=== PATIENT | female | born 1960 | race Caucasian/White ===

== ENCOUNTER 2016-10-26 12:56 | Emergency (ER) | payer MEDICAID ==
[~2016-10-26] VITALS: Ht 157.5 cm; Wt 52.3 kg
[~2016-10-26 12:56] MED LIST: ACET500C5 PO; GLIP5TAB13 PO; IBUP-1542 PO; LANT3I SC; METF500T4 PO; SIMV5TAB50 PO; SITA25TA3 PO; TRAM50TA2 PO
[2016-10-26 13:23] VITALS: Ht 157.5 cm; Wt 52.3 kg
[2016-10-26] MEDS ORDERED: ONDANSETRON 4 MG INJ IV STA (20:18)
[2016-10-26] MEDS ORDERED: SOD CHLORIDE 0.9% 1,000 ML IV STA ×2 (20:18→20:24)
[2016-10-26] MEDS ORDERED: HYDROmorphONE 1 MG/ML SYG IV STA (20:18)
[2016-10-26] MEDS ORDERED: MUPIROCIN 2% 22 GM OINT TOP ONE (20:30)
[2016-10-26] MEDS ORDERED: CEFTRIAXONE 1 GM/50 ML (PMX) 50 ML IVPB ONE (20:30)
[2016-10-26] MEDS ORDERED: IBUPROFEN 600 MG TAB PO ONE (20:30)
[2016-10-26 20:44] LABS: ADD UMIC YES; URINE BILIRUBIN (Dip) NEGATIVE (NEGATIVE); URINE BLOOD (Dip) TRACE (NEGATIVE); URINE COLOR LT. YELLOW (YELLOW); URINE KETONES (Dip) 40 (NEGATIVE); URINE LEUKOCYTE ESTERASE (Dip) NEGATIVE (NEGATIVE); URINE NITRITE (Dip) NEGATIVE (NEGATIVE); URINE TOTAL PROTEIN (Dip) 1+ (NEGATIVE); URINE UROBILINOGEN (Dip) 0.2 E.U./dL (0.1-1.0)
[2016-10-26 20:55] LABS: BASOPHILS % 0.3 % (0.0-2.0); EOSINOPHILS % 0.1 % (0.0-7.0); HEMATOCRIT 45.7 % (37.0-47.0); HEMOGLOBIN 15.5 g/dl (12.0-16.0); LYMPHOCYTES # 0.6 10^3/ul (0.8-2.9); MEAN CORPUSCULAR HEMOGLOBIN 30.6 pg (29.0-33.0); MEAN CORPUSCULAR HGB CONC 33.9 g/dl (32.0-37.0); MEAN CORPUSCULAR VOLUME 90.2 fl (82.0-101.0); MEAN PLATELET VOLUME 12.1 fl (7.4-10.4); MONOCYTE # 0.4 10^3/ul (0.3-0.9); NEUTROPHIL # 9.2 10^3/ul (1.6-7.5); NEUTROPHILS % 89.6 % (39.0-77.0); PLATELET COUNT 125 10^3/UL (140-440); RED BLOOD COUNT 5.07 10^6/ul (4.20-5.40); RED CELL DISTRIBUTION WIDTH 12.5 % (11.5-14.5); UNCORRECTED WBC 10.3 10^3/ul (4.8-10.8); WHITE BLOOD COUNT 10.3 10^3/ul (4.8-10.8)
[2016-10-26 20:57] LABS: SQUAMOUS EPITHELIAL CELL,UR MODERATE; URINE RBCS 0-2 /HPF (0)
[2016-10-26 21:01] LABS: CONDITION 1
[2016-10-26 21:05] LABS: ALBUMIN 4.2 g/dl (3.3-4.9)
[2016-10-26 21:06] LABS: POTASSIUM 4.2 mmol/L (3.5-5.1)
[2016-10-26 21:08] LABS: ALBUMIN/GLOBULIN RATIO 1.16; BILIRUBIN,INDIRECT 0.6 mg/dl (0-1.1); BILIRUBIN,TOTAL 0.6 mg/dl (0.2-1.3); CREATININE 0.47 mg/dl (0.44-1.00); TOTAL PROTEIN 7.8 g/dl (6.1-8.1)
[2016-10-26 21:09] LABS: CALCIUM 9.4 mg/dl (8.4-10.2)
[2016-10-26] MEDS ORDERED: CEPH-443 PO (22:13)
[2016-10-26] MEDS ORDERED: IBUP-1542 PO (22:13)
--- NOTE | 2016-10-26 22:17 | ERD ---
ER Documentation Chief Complaint Date/Time DATE: 10/26/16 TIME: 22:14 Chief Complaint AP WITH N&V & DARK COLORED STOOL X 4 DAYS HPI 55-year-old woman complaining of suprapubic pain and increased urinary frequency 4-5 days, she also complains of bilateral flank pain. She states she suspects she has a urinary tract infection. She denies hematuria but has had a fever today. She denies chest pain, no cough, no shortness of breath, no vomiting or diarrhea, no weight loss, no melena or blood per rectum. Patient denies recent travel or antibiotic use. ROS All systems reviewed and are negative except as per history of present illness. Medications Home Meds Active Scripts Ibuprofen* (Motrin*) 600 Mg Tab, 600 MG PO Q8 for PAIN AND/OR INFLAMMATION, #30 TAB Prov:DEMIAN CHONG MD 10/26/16 Cephalexin* (Keflex*) 500 Mg Capsule, 500 MG PO QID for 5 Days, CAP Prov:DEMIAN CHONG MD 10/26/16 Reported Medications Simvastatin* (Simvastatin*) Unknown Strength Tablet, PO QHS, #30 TAB 04/01/16 Acetaminophen* (Tylophen*) Unknown Strength Capsule, PO QAM Y for PAIN AND OR ELEVATED TEMP, #20 CAP 04/01/16 Sitagliptin* (Januvia*) Unknown Strength Tablet, PO QHS, #30 TAB 04/01/16 Metformin* (Glucophage*) Unknown Strength Tab, PO WITH MEALS TID, #60 TAB 04/01/16 Glipizide* (Glipizide*) Unknown Strength Tablet, PO QHS, TAB 04/01/16 Discontinued Reported Medications Insulin Glargine* (Lantus*) Unknown Strength Soln, SC DAILY, #1 VIAL 04/01/16 Discontinued Scripts Tramadol HCl (Tramadol HCl) 50 Mg Tablet, 50 MG PO Q6 Y for PAIN, #20 TAB Prov:SHANTE BANUELOS NP 04/01/16 Ibuprofen* (Motrin*) 600 Mg Tab, 600 MG PO Q6H Y for PAIN AND OR ELEVATED TEMP, #30 TAB Prov:SHANTE BANUELOS BRAKE REPAIRER 04/01/16 Allergies Allergies: Coded Allergies: No Known Allergy (Unverified , 04/01/16) PMhx/Soc Obesity, hypertension, diabetes mellitus, hypercholesterolemia History of Surgery: Yes (RIGHT INGUINAL TURMOR REMOVAL 11/24, APPENDECTOMY) Anesthesia Reaction: No Hx Neurological Disorder: No Hx Respiratory Disorders: No Hx Cardiac Disorders: Yes (HYPERLIPIDEMIA ) Hx Psychiatric Problems: No Hx Miscellaneous Medical Probl: Yes (DM, LYMPHOMA ) Hx Alcohol Use: No Hx Substance Use: No Hx Tobacco Use: No Smoking Status: Never smoker Physical Exam Vitals Vital Signs Date Time Temp Pulse Resp B/P Pulse Ox O2 Delivery O2 Flow Rate FiO2 10/26/16 23:44 99.0 94 16 108/68 97 Room Air 10/26/16 20:20 Nasal Cannula 2 10/26/16 20:02 100.3 118 20 128/72 98 Room Air 10/26/16 13:23 99.1 77 20 121/56 98 Physical Exam GENERAL: Well-developed, well-nourished, well-hydrated, in no apparent distress , looks nontoxic in appearance, febrile HEENT: Moist mucous membranes, pink conjunctiva, no cervical spine tenderness or step-off deformities, no goiter, no jaundice or icterus, extraocular movements intact without pain. No submandibular induration, and no pharyngeal erythema NEURO: Alert and oriented 3, cranial nerves II through XII intact bilaterally, pupils equal round reactive to light, no focal deficits or facial asymmetry, sensation intact distally Strength 5/5 in upper and lower extremities bilaterally CARDIAC: Tachycardic and regular, no murmurs rubs or gallops LUNGS: Clear bilaterally no wheezing crackles or stridor ABDOMEN: Soft nontender, no guarding, no rigidity, no rebound, no psoas sign no obturator sign. Normoactive bowel sounds SKIN: Warm and dry to touch, no abrasions, contusions, or hematomas, no lacerations, no ecchymosis, no target lesions, and without ulcers EXTREMITIES: No clubbing cyanosis or edema, calves are bilaterally symmetrical, no Homans sign, no popliteal cord sign. Distal pulses equal and bilateral PSYCH: Normal affect without agitation or irritability Result Diagram: 10/26/16201910/26/162019 Results 24 hrs Laboratory Tests Test 10/26/16 20:20 Alanine Aminotransferase (ALT/SGPT) 50IU/L Albumin 4.2g/dl Albumin/Globulin Ratio 1.16 Alkaline Phosphatase 160IU/L Anion Gap 19 Aspartate Amino Transf (AST/SGOT) 33IU/L Basophils # 0.010^3/ul Basophils % 0.3% Blood Morphology Comment Blood Urea Nitrogen 12mg/dl Calcium Level 9.4mg/dl Carbon Dioxide Level 26mmol/L Chloride Level 96mmol/L Creatinine 0.47mg/dl Direct Bilirubin 0.00mg/dl Eosinophils # 0.010^3/ul Eosinophils % 0.1% Globulin 3.60g/dl Glucose Level 330mg/dl Hematocrit 45.7% Hemoglobin 15.5g/dl Indirect Bilirubin 0.6mg/dl Lipase 73U/L Lymphocytes # 0.610^3/ul Lymphocytes % 6.0% Mean Corpuscular Hemoglobin 30.6pg Mean Corpuscular Hemoglobin Concent 33.9g/dl Mean Corpuscular Volume 90.2fl Mean Platelet Volume 12.1fl Monocytes # 0.410^3/ul Monocytes % 4.0% Neutrophils # 9.210^3/ul Neutrophils % 89.6% Nucleated Red Blood Cells # 0.010^3/ul Nucleated Red Blood Cells % 0.0/100WBC Platelet Count 22706^3/UL Potassium Level 4.2mmol/L Red Blood Count 5.0710^6/ul Red Cell Distribution Width 12.5% Sodium Level 137mmol/L Total Bilirubin 0.6mg/dl Total Protein 7.8g/dl Urine Bilirubin NEGATIVE Urine Clarity CLEAR Urine Color LT. YELLOW Urine Glucose 0.5%% Urine Hemoglobin TRACE Urine Ketones 40 Urine Leukocyte Esterase NEGATIVE Urine Microscopic RBC 0-2/HPF Urine Microscopic WBC 2-5/HPF Urine Nitrite NEGATIVE Urine Specific [place] 1.020 Urine Squamous Epithelial Cells MODERATE Urine Total Protein 1+ Urine Urobilinogen 0.2 E.U./dL Urine pH 6.0 White Blood Count 10.310^3/ul Current Medications Medications (Trade) Dose Ordered Sig/Gee Route PRN Reason Start Time Stop Time Status Last Admin Dose Admin Sodium Chloride (NS) 1,000 ml @ 1,000 mls/hr Q1H STAT IV 10/26/16 20:18 10/26/16 20:23 DC Hydromorphone HCl (Dilaudid) 0.5 mg ONCE STAT IV 10/26/16 20:18 10/26/16 20:23 DC Ondansetron HCl (Zofran Inj) 4 mg ONCE STAT IV 10/26/16 20:18 10/26/16 20:22 DC Mupirocin 1 applic 1 applic ONCE ONCE TOP 10/26/16 20:30 10/26/16 20:30 DC Sodium Chloride (NS) 1,000 ml @ 2,000 mls/hr Q30M STAT IV 10/26/16 20:24 10/26/16 20:53 DC 10/26/16 20:39 Ibuprofen 600 mg 600 mg ONCE ONCE PO 10/26/16 20:30 10/26/16 20:31 DC 10/26/16 20:39 Ceftriaxone Sodium (Rocephin) 50 ml @ 100 mls/hr ONCE ONCE IVPB 10/26/16 20:30 10/26/16 20:59 DC 10/26/16 20:40 Procedures/MDM IV line was established patient was placed on calendar control clerk blood bank rhythm strip revealed a sinus tachycardia at 120 bpm with upright P and T waves. Patient was afebrile. I administered 2 L normal saline intravenously, ibuprofen 600 mg p.o., and ceftriaxone 1 g IV CBC was unremarkable, electrolytes revealed mild hyperglycemia 330, liver function tests were normal, troponin was negative. Urine analysis was unremarkable although urine cultures are pending I will follow-up. Given the patient's suspicion for UTI I did treat her with IV antibiotics and will be treating her as an outpatient with oral cephalexin. CT scan of the abdomen and pelvis was performed with multiple findings including cholelithiasis, diverticulosis, and focal calcification of the liver. There was evidence of right-sided nephrolithiasis as well overall consistent with the patient's symptoms. Please refer to radiologist dictation for full report. Patient's vital signs are normal and her pain is completely resolved, she appears well and will be discharged for outpatient management. Both verbal and written instructions were provided to her for continued outpatient management and follow-up. Differential diagnoses considered, included but not limited to acute coronary syndrome, pulmonary embolism, aortic dissection, abdominal aortic aneurysm, sepsis, stroke, meningitis, encephalitis, pneumonia, appendicitis, cholecystitis , bowel obstruction, pyelonephritis, nephrolithiasis, cystitis, as well as metabolic, hematologic, and electrolyte abnormalities. As well as abscess, cellulitis, fractures, and dislocations. Patient feels much better at this time, and vital signs are normal, symptoms have improved. I did give strict instructions to return to the ED if symptoms continue or worsen, patient will otherwise follow-up with primary care physician. Patient understood instructions and agreed to plan. Departure Diagnosis: Primary Impression: Abdominal pain Abdominal location: lower abdomen, unspecified Qualified Code: R10.30 - Lower abdominal pain Additional Impression: Nephrolithiasis Condition: Good Patient Instructions: Abdominal Pain DEMIAN CHONG MD Oct 26, 2016 22:17
--- NOTE | 2016-10-26 22:54 | RADRPT ---
PROCEDURE: CT abdomen and pelvis without contrast. CLINICAL INDICATION: Nausea and vomiting with dark colored stools for 4-day TECHNIQUE: CT scan of the abdomen and pelvis without contrast was performed on a multislice CT [facility] utilizing axial imaging from the lung bases through the pubis symphysis. The patient was scann ed without intravenous contrast. Sagittal and coronal reformatted images were made. The CTDIvol is 20.46 mGy and the DLP is 1179.06 mGycm. One of the following 3 dose reduction techniques were used during this CT examination: automated exp osure control; adjustment of the mA and /or kV according to patient size; or use of iterative recons truciton technique. COMPARISON: None. FINDINGS: The lung bases are clear. The heart size is normal. No pericardial or pleural effusions are present . Diffuse fatty infiltration of the liver is noted. A 1.4 cm peripherally calcified lesion is noted i n the right lobe of the liver. The gallbladder demonstrates multiple calcifications compatible with cholelithiasis. No evidence for gallbladder wall thickening or pericholecystic fluid is present. The visualized spleen, pancreas, and bilateral adrenal glands are normal. The imaged portions of th e kidneys demonstrate a 4 mm right nephrolithiasis without evidence for obstruction. Multiple right renal cortical cysts are present with the largest measuring 1.7 cm in AP dimensions. No evidence f or hydroureter nephrosis or left Nephro lithiasis is present. The visualized aorta is normal without aneurysmal dilatation. The visualized bowel demonstrates mild diverticulosis without evidence for acute diverticulitis or a ppendicitis. Postsurgical changes are noted in the expected location of the appendix. The visualized urinary bladder, uterus and bilateral adnexa are normal. No evidence for ascites, pn eumoperitoneum, or pathologic lymphadenopathy is present. No pelvic mass, lymphadenopathy, or free fluid is seen. There is no evidence of free air. No aneurysmal dilatation of the aorta is evident . The surrounding osseous structures are remarkable for spondylosis of the imaged spine. A grade 1 sp ondylolisthesis of L5 on S1 is present without evidence for spondylolysis. IMPRESSION: 1. Diffuse fatty infiltration of the liver with a 1.4 cm calcified lesion present which may represe nt sequela of prior infection. Consider additional imaging with MRI. 2. Cholelithiasis without definite evidence for acute cholecystitis. 3. Right renal cortical cysts and nonobstructive 4 millimeter of nephrolithiasis. 4. Mild diverticulosis without evidence for acute diverticulitis or appendicitis. 5. Grade 1 spondylolisthesis of L5 and S1 without evidence for spondylolysis. RPTAT: HDC .Maria Del Carmen Prieto MD, Date Time Electronically viewed and signed by .Maria Del Carmen Prieto MD, on 10/26/2016 22:54 .C/
[2016-10-26 23:44] VITALS: BP 108/68; PULSE 94; RESP 16; TEMP 99
== END 2016-10-26 23:45 | disposition home or self-care (01) ==
LOC: E/R 12:56
DX: R10.30 Lower abdominal pain, unspecified (principal); I10 Essential (primary) hypertension; E11.9 Type 2 diabetes mellitus without complications; E66.9 Obesity, unspecified; R11.2 Nausea with vomiting, unspecified; Z68.21 Body mass index [BMI] 21.0-21.9, adult; Z79.84 Long term (current) use of oral hypoglycemic drugs
CPT/HCPCS: 36415; 74176; 80053; 81001; 83690; 85025; 87040; 87086; 96374; J0696; J7030; Z7502; Z7610; 81003

== ENCOUNTER 2017-02-16 20:53 | Emergency (ER) | payer MEDICAID ==
[~2017-02-16] VITALS: Ht 162.6 cm; Wt 88.5 kg
[~2017-02-16 20:53] MED LIST changes: +CEPH-443 PO; -LANT3I SC; -TRAM50TA2 PO
[2017-02-16 21:03] VITALS: Ht 162.6 cm; Wt 88.5 kg
[2017-02-16 21:49] LABS: URINE BLOOD (Dip) POC Negative (NEGATIVE)
--- NOTE | 2017-02-16 21:52 | ERA ---
ER Documentation Chief Complaint Date/Time DATE: 02/16/17 TIME: 21:51 Chief Complaint dizziness x 1 day, hx-lymphoma HPI The patient is a 56-year-old male, presenting to the ER because of intermittent dizziness for 1 day, she feels as if the room is spinning. She has similar symptoms previously, denies fever, chills, neck pain, chest pain, dyspnea, abdominal pain, vomiting, dysuria, diarrhea. She does not smoke, drinks socially Past medical history: History of lymphoma, dyslipidemia, diabetes mellitus, cholelithiasis Past surgical history: Appendectomy ROS All systems reviewed and are negative except as per history of present illness. Medications Home Meds Active Scripts Meclizine Hcl* (Antivert*) 12.5 Mg Tab, 25 MG PO Q6H Y for DIZZINESS, #20 TAB Prov:CHATO VASQUEZ MD 02/16/17 Reported Medications Simvastatin* (Simvastatin*) 5 Mg Tablet, 5 MG PO QHS, #30 TAB 04/01/16 Sitagliptin* (Januvia*) Unknown Strength Tablet, PO QHS, #30 TAB 04/01/16 Metformin* (Glucophage*) 500 Mg Tab, 1000 MG PO WITH BREAKFAST DINNE, #60 TAB 04/01/16 Glipizide* (Glipizide*) 5 Mg Tablet, 5 MG PO QHS, TAB 04/01/16 Discontinued Reported Medications Acetaminophen* (Tylophen*) Unknown Strength Capsule, PO QAM Y for PAIN AND OR ELEVATED TEMP, #20 CAP 04/01/16 Discontinued Scripts Ibuprofen* (Motrin*) 600 Mg Tab, 600 MG PO Q8 for PAIN AND/OR INFLAMMATION, #30 TAB Prov:DEMIAN CHONG MD 10/26/16 Cephalexin* (Keflex*) 500 Mg Capsule, 500 MG PO QID for 5 Days, CAP Prov:DEMIAN CHONG MD 10/26/16 Allergies Allergies: Coded Allergies: No Known Allergy (Unverified , 02/16/17) PMhx/Soc History of Surgery: Yes (RIGHT INGUINAL TURMOR REMOVAL 11/24, APPENDECTOMY) Anesthesia Reaction: No Hx Neurological Disorder: No Hx Respiratory Disorders: No Hx Cardiac Disorders: Yes (HYPERLIPIDEMIA ) Hx Psychiatric Problems: No Hx Miscellaneous Medical Probl: Yes (DM, LYMPHOMA ) Hx Alcohol Use: No Hx Substance Use: No Hx Tobacco Use: No Smoking Status: Never smoker Physical Exam Vitals Vital Signs Date Time Temp Pulse Resp B/P Pulse Ox O2 Delivery O2 Flow Rate FiO2 02/16/17 23:07 97.8 57 20 105/57 99 Room Air 02/16/17 21:03 98.8 70 20 126/58 98 Physical Exam Const: No acute distress. Head: Atraumatic. Eyes: Normal Conjunctiva. ENT: Normal External Ears, Nose and Mouth. Neck: Full range of motion. No meningismus. Resp: Clear to auscultation bilaterally. Cardio: Regular rate and rhythm. Abd: Soft, non distended, normal bowel sounds, non tender. Skin: No petechiae or rashes. Back: No midline or flank tenderness. Ext: No cyanosis, or edema. Neur: Awake and alert. No focal deficit Psych: Normal Mood and Affect. Result Diagram: 02/16/17214802/16/172148 Results 24 hrs Laboratory Tests Test 02/16/17 21:49 02/16/17 21:51 White Blood Count 6.110^3/ul Red Blood Count 4.3010^6/ul Hemoglobin 12.8g/dl Hematocrit 39.4% Mean Corpuscular Volume 91.6fl Mean Corpuscular Hemoglobin 29.8pg Mean Corpuscular Hemoglobin Concent 32.5g/dl Red Cell Distribution Width 12.3% Platelet Count 57868^3/UL Mean Platelet Volume 12.1fl Neutrophils % 53.8% Lymphocytes % 34.4% Monocytes % 6.2% Eosinophils % 4.6% Basophils % 0.5% Nucleated Red Blood Cells % 0.0/100WBC Neutrophils # 3.310^3/ul Lymphocytes # 2.110^3/ul Monocytes # 0.410^3/ul Eosinophils # 0.310^3/ul Basophils # 0.010^3/ul Nucleated Red Blood Cells # 0.010^3/ul Prothrombin Time 13.2Sec Prothrombin Time Ratio 1.0 INR International Normalized Ratio 1.00 Activated Partial Thromboplast Time 23.8Sec Sodium Level 140mmol/L Potassium Level 4.2mmol/L Chloride Level 106mmol/L Carbon Dioxide Level 27mmol/L Anion Gap 11 Blood Urea Nitrogen 20mg/dl Creatinine 0.46mg/dl Glucose Level 233mg/dl Calcium Level 9.6mg/dl Troponin I < 0.012ng/ml Bedside Urine pH (LAB) 5.5 Bedside Urine Protein (LAB) Trace Bedside Urine Glucose (UA) Negative Bedside Urine Ketones (LAB) Negative Bedside Urine Blood Negative Bedside Urine Nitrite (LAB) Negative Bedside Urine Leukocyte Esterase (L Trace Current Medications Medications (Trade) Dose Ordered Sig/Gee Route PRN Reason Start Time Stop Time Status Last Admin Dose Admin Sodium Chloride (NS) 1,000 ml @ 1,000 mls/hr Q1H ONCE IV 02/16/17 22:00 02/16/17 22:59 DC 02/16/17 22:03 Ondansetron HCl (Zofran Inj) 4 mg ONCE STAT IV 02/16/17 21:57 02/16/17 21:59 DC 02/16/17 22:03 Meclizine HCl (Antivert) 25 mg ONCE ONCE PO 02/16/17 22:00 02/16/17 22:01 DC 02/16/17 22:04 Procedures/[place] [id number] Radiology Main Line: [phone] DIAGNOSTIC IMAGING REPORT Patient: GERRADO CORRALES : 1960 Age: 56 Sex: F MR #: [id number] DOS: 02/16/172156 Ordering MD: CHATO VASQUEZ MD Location: E/R Room/Bed: PROCEDURE: CT Head without. CLINICAL INDICATION: Syncope. TECHNIQUE: The study was performed utilizing a multi-slice, multidetector CT scanner. Direct spiral 1 mm axial sections were obtained through the head without the use of intravenous contrast material. 1 or more of the following dose reduction techniques were utilized: Automated exposure control, adjustment of the mA and/or kV according to patient's size, iterative reconstruction technique. Coronal and sagittal reformations were obtained. The images were reviewed on a PACS workstation. RADIATION DOSE: CTDIvol: 43.2 mGy DLP: 720 point a mGy-cm COMPARISON: No prior studies are available for comparison. FINDINGS: There is no intracranial hemorrhage, extra-axial fluid collection, mass lesion, midline shift or hydrocephalus. There is mild prominence of the cerebral sulci , lateral and third ventricles. The white matter is unremarkable. The mendes- white matter differentiation is preserved. The basal cisterns are patent. The midline structures are intact. The orbits, calvarium and extracranial soft tissues are normal in appearance. The visualized paranasal sinuses, mastoid air cells and middle ear cavities are normally aerated. IMPRESSION: 1. Mild peripheral and central cerebral volume loss, within normal limits for age. 2. No acute intracranial abnormality. No intracranial hemorrhage, extra-axial fluid collection, mass lesion or hydrocephalous. RPTAT: HGAS .Mk Fierro MD, MD Date Time Electronically viewed and signed by .Mk Fierro MD, MD on 02/16/2017 23: 00 .S/ CC: CHATO VASQUEZ MD EKG: Read by emergency physician Rate/Rhythm: Normal Sinus Rhythm 60 beats/min QRS, ST, T-waves: No ST elevation, no T inversion, prolonged QT Impression: Abnormal EKG MEDICAL MAKING DECISION: The patient is a 56-year-old female, presenting with acute vertigo. She was treated with Antivert 25 mg p.o. for acute vertigo and Zofran 4 mg IV for nausea and 1 L for acute dehydration with good response The differential diagnoses considered include but are not limited to central causes such as cerebellar infarct, cerebellar hemorrhage, cerebellar tumor, acoustic neuroma, peripheral causes such as benign positional vertigo, labyrinthitis, medication, Meniere's disease. Departure Diagnosis: Primary Impression: Dizziness Condition: Good Comments She was discharged with Antivert I discussed the findings with the patient. I advised the patient to follow-up with the primary physician in about 1-2 days, sooner if needed and return if any concern. CHATO VASQUEZ MD Feb 16, 2017 21:52
[2017-02-16] MEDS ORDERED: ONDANSETRON 4 MG INJ IV STA (21:57)
[2017-02-16] MEDS ORDERED: SOD CHLORIDE 0.9% 1,000 ML IV ONE (22:00)
[2017-02-16] MEDS ORDERED: MECLIZINE 12.5 MG TAB PO ONE (22:00)
[2017-02-16 22:13] LABS: ADD SCAN DIFF NO
[2017-02-16 22:14] LABS: BASOPHILS % 0.5 % (0.0-2.0); EOSINOPHILS # 0.3 10^3/ul (0.0-0.5); EOSINOPHILS % 4.6 % (0.0-7.0); HEMATOCRIT 39.4 % (37.0-47.0); HEMOGLOBIN 12.8 g/dl (12.0-16.0); LYMPHOCYTES # 2.1 10^3/ul (0.8-2.9); LYMPHOCYTES % 34.4 % (15.0-51.0); MEAN CORPUSCULAR HEMOGLOBIN 29.8 pg (29.0-33.0); MEAN CORPUSCULAR HGB CONC 32.5 g/dl (32.0-37.0); MEAN CORPUSCULAR VOLUME 91.6 fl (82.0-101.0); MEAN PLATELET VOLUME 12.1 fl (7.4-10.4); MONOCYTE # 0.4 10^3/ul (0.3-0.9); MONOCYTES % 6.2 % (0.0-11.0); NEUTROPHIL # 3.3 10^3/ul (1.6-7.5); NEUTROPHILS % 53.8 % (39.0-77.0); PLATELET COUNT 187 10^3/UL (140-415); RED CELL DISTRIBUTION WIDTH 12.3 % (11.5-14.5); WHITE BLOOD COUNT 6.1 10^3/ul (4.8-10.8)
[2017-02-16 22:17] LABS: PARTIAL THROMBOPLASTIN TIME 23.8 Sec (25.0-35.0); PROTIME 13.2 Sec (12.2-14.2)
[2017-02-16 22:20] LABS: ANION GAP 11 (8-16); BLOOD UREA NITROGEN 20 mg/dl (7-20); CALCIUM 9.6 mg/dl (8.4-10.2); CARBON DIOXIDE 27 mmol/L (21-31); CHLORIDE 106 mmol/L (97-110); CREATININE 0.46 mg/dl (0.44-1.00); GLUCOSE 233 mg/dl (70-220); POTASSIUM 4.2 mmol/L (3.5-5.1); SODIUM 140 mmol/L (135-144)
[2017-02-16 22:44] LABS: TROPONIN-I < 0.012 ng/ml (0.00-0.12)
--- NOTE | 2017-02-16 23:00 | RADRPT ---
PROCEDURE: CT Head without. CLINICAL INDICATION: Syncope. TECHNIQUE: The study was performed utilizing a multi-slice, multidetector CT scanner. Direct spira l 1 mm axial sections were obtained through the head without the use of intravenous contrast materia l. 1 or more of the following dose reduction techniques were utilized: Automated exposure control, adjustment of the mA and/or kV according to patient's size, iterative reconstruction technique. Co tiarra and sagittal reformations were obtained. The images were reviewed on a PACS workstation. RADIATION DOSE: CTDIvol: 43.2 mGyDLP: 720 point a mGy-cm COMPARISON: No prior studies are available for comparison. FINDINGS: There is no intracranial hemorrhage, extra-axial fluid collection, mass lesion, midline shift or hyd rocephalus. There is mild prominence of the cerebral sulci, lateral and third ventricles. The whit e matter is unremarkable. The mendes-white matter differentiation is preserved. The basal cisterns a re patent. The midline structures are intact. The orbits, calvarium and extracranial soft tissues are normal in appearance. The visualized paranasal sinuses, mastoid air cells and middle ear cavitie s are normally aerated. IMPRESSION: 1. Mild peripheral and central cerebral volume loss, within normal limits for age. 2. No acute intracranial abnormality. No intracranial hemorrhage, extra-axial fluid collection, ma ss lesion or hydrocephalous. RPTAT: HGAS .Mk Fierro MD, MD Date Time Electronically viewed and signed by .Mk Fierro MD, MD on 02/16/2017 23:00 .S/
[2017-02-16 23:07] VITALS: RESP 20; TEMP 97.8
[2017-02-16] MEDS ORDERED: MECL12.574 PO (23:54)
[2017-02-17 00:36] VITALS: BP 120/68; PULSE 55
== END 2017-02-17 00:37 | disposition home or self-care (01) ==
LOC: E/R 20:53
DX: R42 Dizziness and giddiness (principal); E11.9 Type 2 diabetes mellitus without complications; R11.0 Nausea; R55 Syncope and collapse; Z79.84 Long term (current) use of oral hypoglycemic drugs; Z85.72 Personal history of non-Hodgkin lymphomas; Z85.89 Personal history of malignant neoplasm of other organs and systems
CPT/HCPCS: 36415; 70450; 80048; 81003; 84484; 85025; 85610; 85730; 93005; 96374; J2405; J7030; Z7502; Z7610

== ENCOUNTER 2017-05-10 21:12 | Emergency (ER) | payer MEDICAID ==
[~2017-05-10] VITALS: Ht 157.5 cm; Wt 88.5 kg
[~2017-05-10 21:12] MED LIST changes: -ACET500C5 PO; -CEPH-443 PO; -IBUP-1542 PO; +MECL12.574 PO
[2017-05-10 23:01] VITALS: Ht 157.5 cm; Wt 88.5 kg
--- NOTE | 2017-05-11 02:00 | ERD ---
ER Documentation Chief Complaint Date/Time DATE: 05/11/17 TIME: 01:58 Chief Complaint s/p fall on her right side. c/o pain on her right shoulder and right ribs HPI 56-year-old female presents here in emergency department for complaints of right shoulder pain, right clavicular pain, right rib pain after falling after tripping on a chair today. Patient landed on the right side of the body. Patient describes the pain on affected areas as throbbing pain, 6/10 scale, is worse upon movement and touching the area. Patient denies any deformity. Patient did not take any medications for pain. Patient denies any loss of consciousness after the injury. Patient denies any other joint pains. ROS All systems reviewed and are negative except as per history of present illness. Medications Home Meds Active Scripts Meclizine Hcl* (Antivert*) 12.5 Mg Tab, 25 MG PO Q6H Y for DIZZINESS, #20 TAB Prov:CHATO VASQUEZ MD 02/16/17 Reported Medications Simvastatin* (Simvastatin*) 5 Mg Tablet, 5 MG PO QHS, #30 TAB 04/01/16 Sitagliptin* (Januvia*) Unknown Strength Tablet, PO QHS, #30 TAB 04/01/16 Metformin* (Glucophage*) 500 Mg Tab, 1000 MG PO WITH BREAKFAST DINNE, #60 TAB 04/01/16 Glipizide* (Glipizide*) 5 Mg Tablet, 5 MG PO QHS, TAB 04/01/16 Allergies Allergies: Coded Allergies: No Known Allergy (Unverified , 02/16/17) PMhx/Soc History of Surgery: Yes (RIGHT INGUINAL TURMOR REMOVAL 11/24, APPENDECTOMY) Anesthesia Reaction: No Hx Neurological Disorder: No Hx Respiratory Disorders: No Hx Cardiac Disorders: Yes (HYPERLIPIDEMIA ) Hx Psychiatric Problems: No Hx Miscellaneous Medical Probl: Yes (DM, LYMPHOMA , cancer) Hx Alcohol Use: No Hx Substance Use: No Hx Tobacco Use: No Smoking Status: Never smoker FmHx Family History: diabetes Physical Exam Vitals Vital Signs Date Time Temp Pulse Resp B/P Pulse Ox O2 Delivery O2 Flow Rate FiO2 05/10/17 23:01 98.7 79 20 144/81 96 Physical Exam GENERAL: The patient is well developed and appropriate for usual state of health, in no apparent distress. CHEST: Clear to auscultation bilaterally. There are no rales, wheezes or rhonchi. Tenderness on palpation on the right anterior fourth 5th 6th ribs. HEART: Regular rate and rhythm. No murmurs, clicks, rubs or gallops. No S3 or S4. ABDOMEN: Soft, nontender and nondistended. Good bowel sounds. No rebound or guarding. No gross peritonitis. No gross organomegaly or masses. No Rice sign or McBurney point tenderness. BACK: No midline or flank tenderness. EXTREMITIES: Unable to do full range of motion of the right shoulder because of pain, tenderness on palpation or right clavicle, no obvious deformity. Equal pulses bilaterally. There is no peripheral clubbing, cyanosis or edema. No focal swelling or erythema. Full range of motion. Grossly neurovascularly intact. NEURO: Alert and oriented. Cranial nerves 2-12 intact. Motor strength in all 4 extremities with 5/5 strength. Sensation grossly intact. Normal speech and gait. SKIN: There is no apparent rash or petechia. The skin is warm and dry. HEMATOLOGIC AND LYMPHATIC: There is no evidence of excessive bruising or lymphedema. No gross cervical, axillary, or inguinal lymphadenopathy. Results 24 hrs PROCEDURE: XR right clavicle. CLINICAL INDICATION: Right shoulder pain. TECHNIQUE: AP and AP lordotic views of the right clavicle were performed. COMPARISON: None. FINDINGS: There is normal osseous mineralization and alignment. No fracture or osseous lesion is identified. There are normal joints without evidence of arthritis or dislocation. The soft tissues are unremarkable. IMPRESSION: Unremarkable right clavicle. RPTAT: [facility] Physician Cherrie Date Time Electronically viewed and signed by Physician Cherrie on 05/11/2017 02:04 RS/ CC: SHANTE BANUELOS NP PROCEDURE: XR ribs . CLINICAL INDICATION: Right rib pain. TECHNIQUE: AP and oblique views of the right ribs were obtained. COMPARISON: None FINDINGS: The bone mineralization is normal. There is no acute fracture or subluxation. The soft tissues are unremarkable. IMPRESSION: No acute fracture. RPTAT: [facility] Physician Cherrie Date Time Electronically viewed and signed by Zoila Lebron Physician on 05/11/2017 02:02 RS/ CC: SHANTE BANUELOS NP PROCEDURE: XR right shoulder. CLINICAL INDICATION: Right shoulder pain. TECHNIQUE: 3 views of the right shoulder were performed. COMPARISON: None. FINDINGS: There is normal osseous mineralization and alignment. No acute fracture or osseous lesion is identified. There are normal joints without evidence of arthritis or dislocation. The soft tissues are unremarkable. IMPRESSION: Unremarkable right shoulder. RPTAT: [facility] Physician Cherrie Date Time Electronically viewed and signed by Zoila Lebron Physician on 05/11/2017 02:07 RS/ CC: SHANTE BANUELOS NP After receiving patients xray report, a SLING was applied on the patients right arm. After application of the splint, patient has intact sensation and circulation on distal area of the affected joint. Patient does not complain of numbness or tingling after application of the splint. Patient tolerated procedure well. Procedures/MDM Medical Decision Making: Patient's pain is most likely consistent with a rib contusion, shoulder contusion. There is no suspicion for neurovascular compromise. Patient has intact sensation and circulation of the affected extremity. There is low suspicion for septic arthritis. Patient does not have any fever. Radiology exams of the affected area does not show any fracture or dislocation. Disposition: Home. Patient is given prescription for ibuprofen for pain., [place] for severe pain Patient was advised to elevate the affected area and apply ice on affected area. Patient was advised that if symptoms are worse, numbness, tingling, high fever, unable to move joint, worsening symptoms, to return to emergency department immediately. Otherwise, patient is advised to follow up with the primary care doctor in 5-7 days for reevaluation of symptoms. Departure Diagnosis: Primary Impression: Shoulder contusion Encounter type: initial encounter Laterality: right Qualified Code: S40.011A - Contusion of right shoulder, initial encounter Additional Impression: Rib contusion Encounter type: initial encounter Laterality: right Qualified Code: S20.211A - Contusion of rib on right side, initial encounter Condition: Stable Patient Instructions: Rib Contusion, Shoulder Contusion Additional Instructions: Patient is given prescription for ibuprofen for pain., [place] for severe pain Patient was advised to elevate the affected area and apply ice on affected area. Patient was advised that if symptoms are worse, numbness, tingling, high fever, unable to move joint, worsening symptoms, to return to emergency department immediately. Otherwise, patient is advised to follow up with the primary care doctor in 5-7 days for reevaluation of symptoms. SHANTE BANUELOS NP May 11, 2017 02:00
--- NOTE | 2017-05-11 02:04 | RADRPT ---
PROCEDURE: XR right clavicle. CLINICAL INDICATION: Right shoulder pain. TECHNIQUE: AP and AP lordotic views of the right clavicle were performed. COMPARISON: None. FINDINGS: There is normal osseous mineralization and alignment. No fracture or osseous lesion is identified. There are normal joints without evidence of arthritis or dislocation. The soft tissues are unremarkable. IMPRESSION: Unremarkable right clavicle. RPTAT: [facility] Physician Cherrie Date Time Electronically viewed and signed by Physician Cherrie on 05/11/2017 02:04 RS/
--- NOTE | 2017-05-11 02:07 | RADRPT ---
PROCEDURE: XR right shoulder. CLINICAL INDICATION: Right shoulder pain. TECHNIQUE: 3 views of the right shoulder were performed. COMPARISON: None. FINDINGS: There is normal osseous mineralization and alignment. No acute fracture or osseous lesion is identified. There are normal joints without evidence of arthritis or dislocation. The soft tissues are unremarkable. IMPRESSION: Unremarkable right shoulder. RPTAT: [facility] Physician Cherrie Date Time Electronically viewed and signed by Physician Cherrie on 05/11/2017 02:07 RS/
[2017-05-11] MEDS ORDERED: IBUP-1542 PO (02:19)
[2017-05-11] MEDS ORDERED: HYDR-906 PO (02:19)
[2017-05-11 02:41] VITALS: BP 140/76; PULSE 73; RESP 20
== END 2017-05-11 02:42 | disposition home or self-care (01) ==
LOC: FTE 21:12
DX: S40.011A Contusion of right shoulder, initial encounter (principal); S20.211A Contusion of right front wall of thorax, initial encounter; E11.9 Type 2 diabetes mellitus without complications; W07.XXXA Fall from chair, initial encounter; Y92.9 Unspecified place or not applicable; Z79.84 Long term (current) use of oral hypoglycemic drugs
CPT/HCPCS: 71100; 73000; 73030; Z7502

== ENCOUNTER 2017-07-29 06:51 | Emergency (ER) | payer MEDICAID ==
[~2017-07-29] VITALS: Ht 157.5 cm; Wt 87.7 kg
[~2017-07-29 06:51] MED LIST changes: +HYDR-906 PO; +IBUP-1542 PO
[2017-07-29 06:54] VITALS: Ht 157.5 cm; Wt 87.7 kg
[2017-07-29] MEDS ORDERED: ONDANSETRON 4 MG INJ IV STA (07:07)
[2017-07-29] MEDS ORDERED: SOD CHLORIDE 0.9% 1,000 ML IV STA (07:07)
[2017-07-29] MEDS ORDERED: morphine 4 MG/ML VIAL IV STA (07:07)
[2017-07-29 07:41] LABS: BASOPHILS % 0.3 % (0.0-2.0); EOSINOPHILS # 0.2 10^3/ul (0.0-0.5); EOSINOPHILS % 2.9 % (0.0-7.0); HEMATOCRIT 39.5 % (37.0-47.0); HEMOGLOBIN 13.4 g/dl (12.0-16.0); LYMPHOCYTES # 1.4 10^3/ul (0.8-2.9); LYMPHOCYTES % 24.1 % (15.0-51.0); MEAN CORPUSCULAR HEMOGLOBIN 30.3 pg (29.0-33.0); MEAN CORPUSCULAR HGB CONC 33.9 g/dl (32.0-37.0); MEAN CORPUSCULAR VOLUME 89.4 fl (82.0-101.0); MEAN PLATELET VOLUME 11.9 fl (7.4-10.4); MONOCYTE # 0.4 10^3/ul (0.3-0.9); MONOCYTES % 6.7 % (0.0-11.0); NEUTROPHIL # 3.8 10^3/ul (1.6-7.5); NEUTROPHILS % 65.7 % (39.0-77.0); PLATELET COUNT 156 10^3/UL (140-415); RED BLOOD COUNT 4.42 10^6/ul (4.20-5.40); RED CELL DISTRIBUTION WIDTH 11.9 % (11.5-14.5); WHITE BLOOD COUNT 5.9 10^3/ul (4.8-10.8)
[2017-07-29 07:44] LABS: ADD UMIC NO; UR ASCORBIC ACID NEGATIVE (NEGATIVE); UR BILIRUBIN (Dip) NEGATIVE (NEGATIVE); UR BLOOD (Dip) NEGATIVE (NEGATIVE); UR CLARITY CLEAR (CLEAR); UR COLOR YELLOW (YELLOW); UR GLUCOSE (Dip) 3+ mg/dL (NEGATIVE); UR KETONES (Dip) NEGATIVE (NEGATIVE); UR LEUKOCYTE ESTERASE (Dip) NEGATIVE Leu/ul (NEGATIVE); UR NITRITE (Dip) NEGATIVE (NEGATIVE); UR SPECIFIC GRAVITY (Dip) 1.017 (1.003-1.030); UR TOTAL PROTEIN (Dip) NEGATIVE (NEGATIVE); UR UROBILINOGEN (Dip) NEGATIVE (NEGATIVE)
--- NOTE | 2017-07-29 08:02 | RADRPT ---
PROCEDURE: US Abdomen (right upper quadrant). CLINICAL INDICATION: Right upper quadrant abdomen pain. TECHNIQUE: Multiple real-time longitudinal and transverse images of the right upper quadrant of th e abdomen were acquired utilizing a curved array transducer. Images were reviewed on a high-resoluti on PACS workstation. COMPARISON: None FINDINGS: The liver is normal in enlarged and diffusely increased in echogenicity. There is no focal hepatic lesion. Gallstones are present in the gallbladder. There is no gallbladder wall thickening. There is no per icholecystic fluid collection. The bile ducts are borderline dilated with the common bile duct measuring 6.0 mm in diameter. The visualized portions of the pancreas are unremarkable with obscuration of the tail of the pancrea s. No free fluid is present. The right kidney measures 11.9 x 4.4 cm. There is normal echogenicity of the right kidney. There is a benign 2.1 cm right renal cyst. There is no right renal solid mass, hydronephrosis, or calculus . IMPRESSION: 1. Hepatomegaly. 2. Fatty metamorphosis of the liver. 3. Gallstones in the gallbladder. No evidence of cholecystitis. 4. Borderline dilated common bile duct. Correlation with MRCP should be considered. 5. Benign right renal cyst. 6. Otherwise unremarkable right upper quadrant abdomen ultrasound. RPTAT: QQ .Robert Colindres MD, Date Time Electronically viewed and signed by .Robert Colindres MD, on 07/29/2017 08:02 .R/
[2017-07-29 08:06] LABS: ALANINE AMINOTRANSFERASE 54 IU/L (13-69); ALKALINE PHOSPHATASE 133 IU/L (42-121); ANION GAP 13 (8-16); ASPARTATE AMINO TRANSFERASE 23 IU/L (15-46); BILIRUBIN,INDIRECT 0.4 mg/dl (0-1.1); BILIRUBIN,TOTAL 0.4 mg/dl (0.2-1.3); BLOOD UREA NITROGEN 11 mg/dl (7-20); CALCIUM 8.9 mg/dl (8.4-10.2); CARBON DIOXIDE 29 mmol/L (21-31); CHLORIDE 102 mmol/L (97-110); CREATININE 0.44 mg/dl (0.44-1.00); GLUCOSE 323 mg/dl (70-220); POTASSIUM 3.6 mmol/L (3.5-5.1); SODIUM 140 mmol/L (135-144); TOTAL PROTEIN 6.5 g/dl (6.1-8.1)
[2017-07-29 08:33] LABS: TROPONIN-I < 0.012 ng/ml (0.00-0.12)
[2017-07-29 09:16] LABS: ALBUMIN 3.7 g/dl (3.3-4.9); ALBUMIN/GLOBULIN RATIO 1.32
[2017-07-29] MEDS ORDERED: HYDR-902 PO (09:20)
[2017-07-29] MEDS ORDERED: ONDA4TAB14 PO (09:20)
--- NOTE | 2017-07-29 09:22 | ERD ---
ER Documentation Chief Complaint Chief Complaint Complains of abdominal pain since last night with vomiting HPI Patient is a 56-year-old female with diabetes who presents with abdominal pain. She has a diffuse abdominal pain which started last night. It has been constant. She has no vomiting or diarrhea. She said that she tried a pain med but does not know what it was. She has had no fevers. Upon review of old medical records this is the patient's fifth visit to the ER since 2016. ROS All systems reviewed and are negative except as per history of present illness. Medications Home Meds Active Scripts Ondansetron (Ondansetron Odt) 4 Mg Tab.rapdis, 4 MG PO Q6H Y for NAUSEA AND/OR VOMITING, #10 TAB Prov:CLOTILDE JURADO MD 07/29/17 Hydrocodone/Acetaminophen ([place] 10-325 Tablet) 1 Each Tablet, 1 TAB PO Q6H Y for PAIN, #7 TAB Prov:CLOTILDE JURADO MD 07/29/17 Hydrocodone/Acetaminophen ([place] 5-325 Tablet) 1 Each Tablet, 1 TAB PO Q6H Y for SEVERE PAIN LEVEL 7-10, #20 TAB Prov:SHANTE BANUELOS NP 05/11/17 Ibuprofen* (Motrin*) 600 Mg Tab, 600 MG PO Q6H Y for PAIN AND OR ELEVATED TEMP, #30 TAB Prov:SHANTE BANUELOS NP 05/11/17 Meclizine Hcl* (Antivert*) 12.5 Mg Tab, 25 MG PO Q6H Y for DIZZINESS, #20 TAB Prov:CHATO VASQUEZ MD 02/16/17 Reported Medications Simvastatin* (Simvastatin*) 5 Mg Tablet, 5 MG PO QHS, #30 TAB 04/01/16 Sitagliptin* (Januvia*) Unknown Strength Tablet, PO QHS, #30 TAB 04/01/16 Metformin* (Glucophage*) 500 Mg Tab, 1000 MG PO WITH BREAKFAST DINNE, #60 TAB 04/01/16 Glipizide* (Glipizide*) 5 Mg Tablet, 5 MG PO QHS, TAB 04/01/16 Allergies Allergies: Coded Allergies: No Known Allergy (Unverified , 02/16/17) PMhx/Soc History of Surgery: Yes (RIGHT INGUINAL TURMOR REMOVAL 11/24, APPENDECTOMY) Anesthesia Reaction: No Hx Neurological Disorder: No Hx Respiratory Disorders: No Hx Cardiac Disorders: Yes (HYPERLIPIDEMIA ) Hx Psychiatric Problems: No Hx Miscellaneous Medical Probl: Yes (DM, LYMPHOMA ) Hx Alcohol Use: No Hx Substance Use: No Hx Tobacco Use: No Smoking Status: Never smoker FmHx Family History: diabetes Physical Exam Vitals Vital Signs Date Time Temp Pulse Resp B/P Pulse Ox O2 Delivery O2 Flow Rate FiO2 07/29/17 06:54 98.0 86 20 140/81 95 Physical Exam Const: Moderate distress secondary to pain Head: Atraumatic Eyes: Normal Conjunctiva ENT: Normal External Ears, Nose and Mouth. Neck: Full range of motion..~ No meningismus. Resp: Clear to auscultation bilaterally Cardio: Regular rate and rhythm, no murmurs Abd: Soft, upper abdominal pain without rebound or guarding, no right lower or left lower quadrant tenderness to palpation Skin: No petechiae or rashes Back: No midline or flank tenderness Ext: No cyanosis, or edema Neur: Awake and alert Psych: Normal Mood and Affect Result Diagram: 07/29/1772907/29/17 0730 Results 24 hrs Laboratory Tests Test 07/29/17 07:30 White Blood Count 5.910^3/ul Red Blood Count 4.4210^6/ul Hemoglobin 13.4g/dl Hematocrit 39.5% Mean Corpuscular Volume 89.4fl Mean Corpuscular Hemoglobin 30.3pg Mean Corpuscular Hemoglobin Concent 33.9g/dl Red Cell Distribution Width 11.9% Platelet Count 40890^3/UL Mean Platelet Volume 11.9fl Neutrophils % 65.7% Lymphocytes % 24.1% Monocytes % 6.7% Eosinophils % 2.9% Basophils % 0.3% Nucleated Red Blood Cells % 0.0/100WBC Neutrophils # 3.810^3/ul Lymphocytes # 1.410^3/ul Monocytes # 0.410^3/ul Eosinophils # 0.210^3/ul Basophils # 0.010^3/ul Nucleated Red Blood Cells # 0.010^3/ul Urine Color YELLOW Urine Clarity CLEAR Urine pH 6.0 Urine Specific [place] 1.017 Urine Ketones NEGATIVEmg/dL Urine Nitrite NEGATIVEmg/dL Urine Bilirubin NEGATIVEmg/dL Urine Urobilinogen NEGATIVEmg/dL Urine Leukocyte Esterase NEGATIVELeu/ul Urine Hemoglobin NEGATIVEmg/dL Urine Glucose 3+mg/dL Urine Total Protein NEGATIVEmg/dl Sodium Level 140mmol/L Potassium Level 3.6mmol/L Chloride Level 102mmol/L Carbon Dioxide Level 29mmol/L Anion Gap 13 Blood Urea Nitrogen 11mg/dl Creatinine 0.44mg/dl Glucose Level 323mg/dl Calcium Level 8.9mg/dl Total Bilirubin 0.4mg/dl Direct Bilirubin 0.00mg/dl Indirect Bilirubin 0.4mg/dl Aspartate Amino Transf (AST/SGOT) 23IU/L Alanine Aminotransferase (ALT/SGPT) 54IU/L Alkaline Phosphatase 133IU/L Troponin I < 0.012ng/ml Total Protein 6.5g/dl Albumin 3.7g/dl Globulin 2.80g/dl Albumin/Globulin Ratio 1.32 Lipase 113U/L Current Medications Medications (Trade) Dose Ordered Sig/Gee Route PRN Reason Start Time Stop Time Status Last Admin Dose Admin Sodium Chloride (NS) 1,000 ml @ 1,000 mls/hr Q1H STAT IV 07/29/17 07:07 07/29/17 08:06 DC 07/29/17 07:40 Morphine Sulfate (morphine) 4 mg ONCE STAT IV 07/29/17 07:07 07/29/17 07:08 DC 07/29/17 07:41 Ondansetron HCl (Zofran Inj) 4 mg ONCE STAT IV 07/29/17 07:07 07/29/17 07:08 DC 07/29/17 07:41 Procedures/MDM EKG read by me: Rate/Rhythm: Regular rate and rhythm at a rate of 74 Intervals: Normal Impression: No evidence of ischemia or arrhythmia Ultrasound shows gallstones without cholecystitis per radiology. Patient is a 56-year-old female with diabetes who presents with abdominal pain. She was found to have gallstones I believe she has acute biliary colic. I doubt cholecystitis, pancreatitis, appendicitis, or bowel obstruction. She has had her appendix removed in the past. She will be discharged with a prescription for [place] and Zofran for symptomatically relief. She will need close follow-up with her primary doctor within 24 hours I may benefit from elective cholecystectomy. At this point I do not believe the patient requires admission to the hospital. She was given copies of her laboratory studies and ultrasound report prior to discharge. EKG and troponin are negative and I doubt acute coronary syndrome. Departure Diagnosis: Primary Impression: Biliary colic Additional Impression: Abdominal pain Abdominal location: epigastric Qualified Code: R10.13 - Epigastric pain Condition: Fair Patient Instructions: Abdominal Pain, Biliary Colic With Gallstone (Confirmed) Referrals: Your doctor Additional Instructions: Visite a jj ngoc [place] para un EXAMEN.Regrese a estas instalaciones si no se mejora jose rafael esperbamos o jose rafael le dijimos. CLOTILDE JURADO MD Jul 29, 2017 09:22
[2017-07-29] MEDS ORDERED: HYDROmorphONE 1 MG/ML SYG IV STA (09:52)
[2017-07-29 11:15] VITALS: BP 121/71; PULSE 72; RESP 16; TEMP 98.1
== END 2017-07-29 12:15 | disposition home or self-care (01) ==
LOC: E/R 06:51
DX: K80.50 Calculus of bile duct without cholangitis or cholecystitis without obstruction (principal); E11.9 Type 2 diabetes mellitus without complications; Z79.84 Long term (current) use of oral hypoglycemic drugs
CPT/HCPCS: 36415; 76705; 80053; 81003; 83690; 84484; 85025; 96374; 96375; J1170; J2270; J2405; J7030; Z7502; 93005

== ENCOUNTER 2017-09-08 15:53 | Emergency (ER) | END 2017-09-08 19:20 | disposition home or self-care (01) ==

== ENCOUNTER 2017-09-22 15:57 | Emergency (ER) | END 2017-09-23 02:20 | disposition home or self-care (01) ==

== ENCOUNTER 2017-11-15 18:59 | Emergency (ER) | END 2017-11-15 20:08 | disposition home or self-care (01) ==

== ENCOUNTER 2018-03-08 21:28 | Emergency (ER) | END 2018-03-08 23:28 | disposition home or self-care (01) ==

== ENCOUNTER 2018-08-06 08:18 | Emergency (ER) | END 2018-08-06 12:18 | disposition home or self-care (01) ==

== ENCOUNTER 2019-01-03 20:01 | Emergency (ER) | payer MEDICAID ==
[~2019-01-03] VITALS: Ht 162.6 cm; Wt 90.0 kg
[~2019-01-03 20:01] MED LIST changes: +ACET500C5 PO; +ALBU8.5H8 INH; +ASPI-817 PO; +AZIT250T PO; +BENZ-6 PO; +CEPH-443 PO; +CETI10CA PO; +CIPR-193 PO; +CIPR500T4 PO; -HYDR-906 PO; -IBUP-1542 PO; +IBUP-1561 PO; +LOPE2CAP PO; -MECL12.574 PO; +METF100010 PO; -METF500T4 PO; +NITR-58 PO; -SIMV5TAB50 PO; -SITA25TA3 PO
[2019-01-03 20:04] VITALS: BP 140/78; PULSE 84; RESP 16; Ht 162.6 cm; Wt 90.0 kg
[2019-01-03] MEDS ORDERED: KETOROLAC 30 MG INJ IM STA (22:09)
--- NOTE | 2019-01-03 22:16 | ERD ---
ER Documentation Chief Complaint Chief Complaint R foot pain x 1 week HPI 58-year-old female with past medical history of diabetes, hyperlipidemia, lymphoma who presents with complaint of right foot pain over the past week. Patient denies any history of trauma or fall. States has tried Tylenol for pain which shows only modestly improved her symptoms. Time examination patient able to ambulate without issue, taking several steps around examination room but reporting pain. She otherwise is without complaint. ROS All systems reviewed and are negative except as per history of present illness. Medications Home Meds Active Scripts Ibuprofen* (Motrin*) 600 Mg Tab, 600 MG PO Q6, #30 TAB Prov:BEATRICE CORDEROC 01/03/19 Naproxen* (Naprosyn*) 500 Mg Tablet, 500 MG PO BID PRN for PAIN AND/OR INFLAMMATION, #30 TAB Prov:BEATRICE CORDERO-C 01/03/19 Cephalexin* (Keflex*) 500 Mg Capsule, 500 MG PO QID for 7 Days, CAP Prov:HORTENSIA KWON-C 08/06/18 Loperamide Hcl* (Imodium*) 2 Mg Capsule, 2 MG PO .AFTER EA LOOSE BM PRN for DIARRHEA, #10 TAB Prov:COLBY HAYESC 03/08/18 Ciprofloxacin Hcl* (Ciprofloxacin Hcl*) 250 Mg Tablet, 250 MG PO DAILY for 3 Days, #3 TAB Prov:COLBY HAYESC 03/08/18 Ibuprofen* (Motrin*) 400 Mg Tab, 400 MG PO Q6H PRN for PAIN AND OR ELEVATED TEMP, #30 TAB Prov:SHANTE BANUELOS NP 11/15/17 Acetaminophen* (Tylophen*) 500 Mg Capsule, 1 CAP PO Q6H PRN for PAIN AND OR ELEVATED TEMP, #20 CAP Prov:SHANTE BANUELOS NP 18 Azithromycin* (Zithromax*) 250 Mg Tablet, 250 MG PO .ZPACK DIRECTED, #6 TAB TAKE 500 MG (2 TABS) THE FIRST DAY THEN 250 MG (1 TAB) DAYS 2-5 Prov:SHANTE BANUELOS NP 11/15/17 Cetirizine Hcl* (Zyrtec*) 10 Mg Capsule, 10 MG PO DAILY, #30 TAB.CHEW Prov:RAMONSHANTE CHRISTIANSEN. NURSE PRACTITIONER HOSPITALIST 11/15/17 Benzonatate* (Tessalon Perle*) 100 Mg Capsule, 100 MG PO Q8H PRN for COUGH, #20 CAP Prov:ARSHSHANTE LI. NURSE PRACTITIONER HOSPITALIST 11/15/17 Albuterol Sulfate* (Proair HFA*) 8.5 Gm Hfa.aer.ad, 2 PUFF INH Q4H PRN for WHEEZING AND SOB, #1 INHALER Prov:RAMONSHANTE CHRISTIANSEN. NURSE PRACTITIONER HOSPITALIST 11/15/17 Nitrofurantoin Monohyd Macrocr* (Macrobid*) 100 Mg Capsr, 100 MG PO BID for 5 Days, CAP Prov:SYED COVINGTON DO 09/23/17 Ciprofloxacin Hcl* (Ciprofloxacin Hcl*) 500 Mg Tablet, 500 MG PO BID for 5 Days, TAB Prov:SYED COVINGTON DO 09/23/17 Reported Medications Metformin Hcl* (Metformin Hcl*) 1,000 Mg Tablet, 1000 MG PO WITH BREAKFAST DINNE, #60 TAB 09/22/17 Aspirin* (Aspirin* EC) 81 Mg Tablet.dr, 81 MG PO DAILY, TAB 09/22/17 Glipizide* (Glipizide*) 5 Mg Tablet, 5 MG PO QHS, TAB 04/01/16 Allergies Allergies: Coded Allergies: No Known Allergy (Unverified , 03/08/18) PMhx/Soc History of Surgery: Yes (RIGHT INGUINAL TURMOR REMOVAL 11/24, APPENDECTOMY) Anesthesia Reaction: No Hx Neurological Disorder: No Hx Respiratory Disorders: No Hx Cardiac Disorders: Yes (HYPERLIPIDEMIA ) Hx Psychiatric Problems: No Hx Miscellaneous Medical Probl: Yes (DM, LYMPHOMA ) Hx Alcohol Use: Yes (social) Hx Substance Use: No Hx Tobacco Use: No Smoking Status: Never smoker FmHx Family History: diabetes Physical Exam Vitals Vital Signs Date Temp Pulse Resp B/P (MAP) Pulse Ox O2 O2 Flow FiO2 Time Delivery Rate 01/03/19 98.1 84 16 140/78 100 20:04 (98) Physical Exam I have reviewed the triage vital signs. Const: Well nourished, well developed, appears stated age Eyes: PERRL, no conjunctival injection HENT: NCAT, Neck supple without meningismus CV: RRR, Warm, well-perfused extremities RESP: CTAB, Unlabored respiratory effort GI: soft, non-tender, non-distended, no masses MSK: No gross deformities appreciated, R foot no deformities, no swelling or areas of erythema, able to wiggle all toes, SILT throughout, 5/5 strenght to RLE Skin: Warm, dry. No rashes Neuro: grossly non focal Psych: Appropriate mood and affect. Results 24 hrs Current Medications Medications Dose Sig/Gee Start Time Status Last (Trade) Ordered Route PRN Stop Time Admin Dose Reason Admin Ketorolac 30 mg ONCE STAT 01/03/19 DC 01/03/19 Tromethamine IM 22:09 22:21 (Toradol) 01/03/19 22:11 Procedures/MDM 58-year-old female presents with right foot pain. Doubt emergent etiology of her complaints given unremarkable exam. She has no history of recent fall or trauma thus I do not feel radiologic imaging is indicated at this time. She may benefit from outpatient follow-up and work-up for her symptoms if they do not im prove. Patient advised to make follow-up appointment with her PMD for continued management of her symptoms. ED course: Toradol Plan: NSAIDs on discharge, PMD follow-up for further evaluation and work-up for nonemergent causes of her symptoms DISPOSITION PLAN: We discussed follow up with the patient's primary care doctor within 24 to 48 hours. Patient counseled regarding my diagnostic impression and care plan. Prior to discharge all questions answered. Pt agrees with treatment plan and understands strict return precautions. Precautionary instructions provided including instructions to return to the ER if not improving or for any worsening or changing symptoms or concerns. Disclaimer: Inadvertent spelling and grammatical errors are likely due to EHR/dictation software use and do not reflect on the overall quality of patient care. Also, please note that the electronic time recorded on this note does not necessarily reflect the actual time of the patient encounter. Departure Diagnosis: Primary Impression: Foot pain Condition: Stable BEATRICE CORDERO PA-C Jan 03, 2019 22:16
[2019-01-03] MEDS ORDERED: NAPR-985 PO (22:17)
[2019-01-03] MEDS ORDERED: IBUP-1542 PO (22:18)
== END 2019-01-03 22:37 | disposition home or self-care (01) ==
LOC: FTE 20:01
DX: M79.671 Pain in right foot (principal); E11.9 Type 2 diabetes mellitus without complications; Z79.82 Long term (current) use of aspirin; Z79.84 Long term (current) use of oral hypoglycemic drugs
CPT/HCPCS: 96372; J1885; Z7502

== ENCOUNTER 2019-07-15 19:37 | Emergency (ER) | payer MEDICAID ==
[~2019-07-15] VITALS: Ht 152.4 cm; Wt 88.9 kg
[~2019-07-15 19:37] MED LIST changes: +DOCU-144 PO; +HYDR-4011 PO; +IBUP-1542 PO; +IBUP800T48 PO; +LANT3I SC; +NAPR-985 PO; +SIMV40TA2 PO; +VALA10004 PO
[2019-07-15 19:43] VITALS: Ht 152.4 cm; Wt 88.9 kg
[2019-07-15] MEDS ORDERED: SOD CHLORIDE 0.9% 1,000 ML IV STA ×2 (21:49→21:57)
[2019-07-15] MEDS ORDERED: ONDANSETRON 4 MG INJ IV STA ×2 (21:49→21:57)
[2019-07-15] MEDS ORDERED: morphine 4 MG/ML VIAL IV STA ×2 (21:49→21:57)
[2019-07-15] MEDS ORDERED: KETOROLAC 30 MG INJ IV STA (23:19)
[2019-07-16 00:10] VITALS: BP 112/70; PULSE 78; RESP 19
== END 2019-07-16 00:12 | disposition home or self-care (01) ==
LOC: E/R 19:37
DX: K57.30 Diverticulosis of large intestine without perforation or abscess without bleeding (principal); E11.9 Type 2 diabetes mellitus without complications; F17.210 Nicotine dependence, cigarettes, uncomplicated; N20.0 Calculus of kidney; Z79.82 Long term (current) use of aspirin; Z79.84 Long term (current) use of oral hypoglycemic drugs; Z85.9 Personal history of malignant neoplasm, unspecified
CPT/HCPCS: 36415; 74176; 80053; 81001; 82150; 83690; 84484; 85025; 85610; 85730; 87086; 93005; 96374; 96375; J2270; J2405; J7030; Z7502; 81003